=== PATIENT | female | born 1965 | race Caucasian/White ===

== ENCOUNTER → 2017-06-19 | Outpatient (CLI) | payer OTHER ==
[~2017-06-19] MED LIST: LEVSOD75 PO; LISI20 PO
[2017-06-19 14:18] LABS: Bun/Creatinine Ratio 15.9 (12.0-20.0); Calcium, Blood 8.6 mg/dL (8.5-10.1); Creatinine, Blood 1.07 mg/dL (0.40-1.00); Potassium, Blood 3.8 mmol/L (3.5-5.5)
[2017-06-19 14:22] LABS: Thyroid Stimulating Hormone 1.41 uIU/mL (0.360-4.800)
== END | disposition home or self-care (01) ==
LOC: LAB SHORT 13:51 → LAB 13:51
PROVIDERS: Hospitalist
DX: E03.9 Hypothyroidism, unspecified (principal); I10 Essential (primary) hypertension
CPT/HCPCS: 80048; 84439; 84443

== ENCOUNTER → 2017-06-19 | Outpatient (CLI) | payer OTHER | END | disposition home or self-care (01) | LOC: LAB 13:55 → LAB SHORT 13:55 | DX: Q61.3 Polycystic kidney, unspecified (principal) | CPT/HCPCS: 82043 ==

== ENCOUNTER → 2017-06-20 | Outpatient (CLI) | payer OTHER | END | disposition home or self-care (01) | LOC: LAB 12:48 → LAB SHORT 12:48 | DX: R73.9 Hyperglycemia, unspecified (principal) | CPT/HCPCS: 83036 ==

== ENCOUNTER → 2017-11-11 | Outpatient (CLI) | payer OTHER ==
[2017-11-11 18:16] LABS: Bun/Creatinine Ratio 17.6 (12.0-20.0); Creatinine, Blood 1.42 mg/dL (0.40-1.00); Potassium, Blood 4.1 mmol/L (3.5-5.5)
== END | disposition home or self-care (01) ==
LOC: LAB SHORT 17:43 → LAB 17:43
PROVIDERS: Hospitalist
DX: I10 Essential (primary) hypertension (principal)
CPT/HCPCS: 80048

== ENCOUNTER → 2018-03-30 | Outpatient (CLI) | payer OTHER ==
[2018-03-30 18:14] LABS: Bun/Creatinine Ratio 19.1 (12.0-20.0); Calcium, Blood 8.4 mg/dL (8.5-10.1); Creatinine, Blood 1.15 mg/dL (0.40-1.00); Free Thyroxine 1.18 ng/dL (0.70-1.60); Potassium, Blood 3.7 mmol/L (3.5-5.5)
[2018-03-30 18:19] LABS: Thyroid Stimulating Hormone 0.52 uIU/mL (0.360-4.800)
== END | disposition home or self-care (01) ==
LOC: LAB SHORT 17:35 → LAB 17:35
PROVIDERS: Hospitalist
DX: E03.9 Hypothyroidism, unspecified (principal); I10 Essential (primary) hypertension
CPT/HCPCS: 80048; 84439; 84443

== ENCOUNTER 2018-07-19 23:02 | Emergency (ER) | payer OTHER ==
[~2018-07-19] VITALS: Ht 154.9 cm; Wt 91.2 kg
[2018-07-19] MEDS ORDERED: NEBI10 (23:09)
[2018-07-19 23:37] LABS: BASOPHILS ABSOLUTE AUTO 0.02 K/mm3 (0.00-0.23); BASOPHILS PERCENT AUTO 0 % (0-2); EOSINOPHILS ABSOLUTE AUTO 0.11 K/mm3 (0.00-0.68); EOSINOPHILS PERCENT AUTO 2 % (0-6); Hematocrit 42.9 % (33.0-51.0); Hemoglobin 14.4 g/dL (11.5-16.0); IMMATURE GRAN ABSOLUTE AUTO 0.01 K/mm3 (0.00-0.10); IMMATURE GRAN PERCENT AUTO 0 % (0-1); LYMPHOCYTES ABSOLUTE AUTO 1.38 K/mm3 (0.84-5.20); LYMPHOCYTES PERCENT AUTO 19 % (21-46); MONOCYTES ABSOLUTE AUTO 0.32 K/mm3 (0.16-1.47); MONOCYTES PERCENT AUTO 5 % (4-13); Mean Corpuscular HGB 27.3 pg (26.0-34.0); Mean Corpuscular HGB Conc 33.6 g/dL (31.5-36.5); Mean Corpuscular Volume 81 fL (80-100); NEUTROPHILS ABSOLUTE AUTO 5.34 K/mm3 (1.96-9.15); NEUTROPHILS PERCENT AUTO 74 % (41-73); Platelet Count 360 K/mm3 (150-400); RDW Coefficient Variation 13.1 % (11.7-14.2); RDW Standard Deviation 38.2 fL (35.1-46.3); Red Blood Cell Count 5.28 M/mm3 (3.80-5.20); White Blood Cell Count 7.18 K/mm3 (4.00-11.30)
[2018-07-20 00:01] LABS: Alanine Aminotransfer (ALT/SGP 20 U/L (12-78); Albumin/Globulin Ratio 0.9 (0.8-1.8); Alk Phos 81 U/L (50-136); Anion Gap 8 mmol/L (6-16); Aspartate Aminotrans (AST/SGOT 12 U/L (12-37); Bilirubin, Total 0.6 mg/dL (0.1-1.0); Blood Urea Nitrogen 16 mg/dL (8-24); Bun/Creatinine Ratio 15.5 (12.0-20.0); CO2, Blood 25 mmol/L (21-32); Calcium, Blood 9.8 mg/dL (8.5-10.1); Chloride, Blood 109 mmol/L (98-108); Creatinine, Blood 1.03 mg/dL (0.40-1.00); Globulin, Blood 4.6 g/dL (2.2-4.0); Glomerular Filtration Rate >60 (60-); Glucose, Blood 104 mg/dL (70-99); Potassium, Blood 3.9 mmol/L (3.5-5.5); Sodium, Blood 142 mmol/L (136-145); Total Protein, Blood 8.6 g/dL (6.4-8.2)
[2018-07-20] MEDS ORDERED: MECL12.5 PO (03:54)
[2018-07-20] MEDS ORDERED: Valium5 MG PO (03:54)
== END 2018-07-20 04:06 | disposition home or self-care (01) ==
LOC: ER 23:02
PROVIDERS: Emergency Medicine
DX: H81.10 Benign paroxysmal vertigo, unspecified ear (principal); R11.0 Nausea; Z88.2 Allergy status to sulfonamides; Z79.899 Other long term (current) drug therapy; I10 Essential (primary) hypertension; E03.9 Hypothyroidism, unspecified
CPT/HCPCS: 36415; 80053; 82947; 85025; 96374; 99284-25; A9270-GY; J2405

== ENCOUNTER → 2019-06-03 | Outpatient (CLI) | payer OTHER ==
[~2019-06-03] MED LIST changes: +MECL12.5 PO; +NEBI10; +Valium5 MG PO
== END | disposition home or self-care (01) ==
LOC: LAB 14:22 → LAB SHORT 14:22
DX: N39.0 Urinary tract infection, site not specified (principal)
CPT/HCPCS: 87086

== ENCOUNTER 2020-11-24 08:46 | Day surgery (SDC) | payer OTHER ==
[~2020-11-24] VITALS: Ht 154.9 cm; Wt 96.6 kg
[~2020-11-24 08:46] MED LIST changes: +Aldactone25 MG PO; +HYDRA25 PO; -LISI20 PO; -NEBI10; +NEBI10 PO; +VALACYCLOVIR1000 M1 PO; +ZESTRIL40 MG PO; +[UNRECOGNIZED DRUG - OTHER] PO; +[UNRECOGNIZED DRUG - OTHER] PO
--- NOTE | 2020-11-24 09:33 | NUR ---
11/24/20 0933 Marcela Gannon FIRST ATTEMPT MISSED BY KEISHA IN THE RIGHT HAND. SECOND ATTEMPT SUCCESFUL BY RN IN THE LEFT HAND.
== END 2020-11-24 11:05 | disposition home or self-care (01) ==
LOC: ORSCSDS 08:46
PROVIDERS: Internal Medicine Gastroenterology
PROC: 0DBL8ZX Excision of Transverse Colon, Via Natural or Artificial Opening Endoscopic, Diagnostic (ICD-10-PCS; principal; 2020-11-24 10:00)
DX: Z12.11 Encounter for screening for malignant neoplasm of colon (principal); Z86.010 Personal history of colon polyps; D12.3 Benign neoplasm of transverse colon; K64.8 Other hemorrhoids; I10 Essential (primary) hypertension; E03.9 Hypothyroidism, unspecified; E66.01 Morbid (severe) obesity due to excess calories; Z68.41 Body mass index [BMI] 40.0-44.9, adult; Z79.899 Other long term (current) drug therapy
CPT/HCPCS: 88305; A9270; J2405; J2704; J7120

== ENCOUNTER → 2021-12-31 | Outpatient (CLI) | payer OTHER | LOC: LAB SHORT 09:00 → LAB 09:00 | DX: N30.01 Acute cystitis with hematuria (principal) | CPT/HCPCS: 87077; 87086; 87186 ==

== ENCOUNTER → 2022-05-29 | Outpatient (CLI) | payer OTHER | LOC: LAB 15:35 → LAB SHORT 15:35 | PROVIDERS: Hospitalist | DX: E27.40 Unspecified adrenocortical insufficiency (principal) | CPT/HCPCS: 82626 ==

== ENCOUNTER → 2023-07-28 | Outpatient (CLI) | payer OTHER ==
[2023-08-08 13:46] LABS: HPV GENOTYPE 16 BY PCR Negative; HPV GENOTYPE 18 BY PCR Negative; HPV SOURCE Cervical; HPV, OTHER HIGH RISK BY PCR Negative
== END ==
LOC: LAB SHORT 13:41 → LAB 13:41
PROVIDERS: Hospitalist
DX: Z12.4 Encounter for screening for malignant neoplasm of cervix (principal)
CPT/HCPCS: 87624; 88142

== ENCOUNTER 2023-08-25 16:05 | Inpatient (IN) | payer OTHER ==
[~2023-08-25] VITALS: Ht 154.9 cm; Wt 94.8 kg
[2023-08-25] MEDS ORDERED: NS 1,000 ML IV SCH ×3 (16:30→21:10)
[2023-08-25] MEDS ORDERED: Ondansetron HCl 2 MG / ML 2ML Vial IV PRN (21:10)
[2023-08-25] MEDS ORDERED: Loperamide HCl 2 MG Cap PO PRN (21:10)
[2023-08-25 22:22] LABS: BASOPHILS ABSOLUTE AUTO 0.03 K/mm3 (0.00-0.23); BASOPHILS PERCENT AUTO 0 % (0-2); EOSINOPHILS ABSOLUTE AUTO 0.56 K/mm3 (0.00-0.68); EOSINOPHILS PERCENT AUTO 8 % (0-6); Hematocrit 34.8 % (33.0-51.0); Hemoglobin 11.9 g/dL (11.5-16.0); IMMATURE GRAN ABSOLUTE AUTO 0.01 K/mm3 (0.00-0.10); IMMATURE GRAN PERCENT AUTO 0 % (0-1); LYMPHOCYTES ABSOLUTE AUTO 1.66 K/mm3 (0.84-5.20); LYMPHOCYTES PERCENT AUTO 24 % (21-46); MONOCYTES ABSOLUTE AUTO 0.58 K/mm3 (0.16-1.47); MONOCYTES PERCENT AUTO 9 % (4-13); Mean Corpuscular HGB 28.2 pg (26.0-34.0); Mean Corpuscular HGB Conc 34.2 g/dL (31.5-36.5); Mean Corpuscular Volume 83 fL (80-100); Mean Platelet Volume 9.6 fL (9.1-12.4); NEUTROPHILS ABSOLUTE AUTO 4.02 K/mm3 (1.96-9.15); NEUTROPHILS PERCENT AUTO 59 % (41-73); Platelet Count 284 K/mm3 (150-400); RDW Standard Deviation 39.1 fL (35.1-46.3); Red Blood Cell Count 4.22 M/mm3 (3.80-5.20); White Blood Cell Count 6.86 K/mm3 (4.00-11.30)
[2023-08-25 22:39] LABS: International Normalized Ratio 1.07; Prothrombin Time Results 11.4 Sec (9.7-11.5)
[2023-08-25] MEDS ORDERED: SPIR25 PO (22:41)
[2023-08-25 22:52] LABS: Albumin, Blood 3.4 g/dL (3.4-5.0); Albumin/Globulin Ratio 0.9 (0.8-1.8); Bilirubin, Total 0.3 mg/dL (0.1-1.0); Bun/Creatinine Ratio 10.2 (12.0-20.0); Calcium, Blood 8.4 mg/dL (8.5-10.1); Globulin, Blood 3.9 g/dL (2.2-4.0); Total Protein, Blood 7.3 g/dL (6.4-8.2)
[2023-08-25 23:00] VITALS: BP 102/62
--- NOTE | 2023-08-25 23:31 | NUR ---
PT IS ALERT AND ORIENTED X 4, COOPERATIVE WITH CARE AND ABLE TO MAKE NEEDS KNOWN. SHE SAID SHE FEELS VERY WEAK AND HER HEAD FEELS HEAVY. SHE EXPERIENCES INTERMITTENT DIZZINESS. SHE IS ON RA AND MAINTAINING 02 SATURATION ABOVE 92% AND SHE DENIES SOB. HR SR 70'S, SHE DENIES CHEST PAIN/PRESSURE, BP STABLE. PT IS CONTINENT OF BLADDER AND BOWELS. PT SAID SHE HAS BEEN EXPERIENCING DIARRHEA AND INTERMITTENT NAUSEA SINCE SHE STARTED [facility]EMPIC IN [place]. SHE HAS BEEN EXPERIENCING NAUSEA, VOMITING, WEAKNESS, AND FEELING THAT HEAD IS HEAVY SINCE LAST FRIDAY WHEN SHE WAS IN [place] VISITING HER PARENTS. SHE SAID THAT SHE THINKS SHE OVER WORKED HERSELF WHILE HELPING HER DAD CLEAR OUT HIS GARAGE IN THE HEAT. SHE SAID SHE DOESN'T THINK SHE DRANK ENOUGH WATER. PT SAID SHE TOOK HERSELF OFF OF OZEMPIC AND HER LAST DOSE OF 0.5MG WAS August. PT SAID SHE GOT BACK FROM [place] YESTERDAY 08/24/2023. IV TO R WRIST IS PATENT AND INFUSING PER EMAR. PT WAS NAUSEOUS WHEN SHE FIRST ARRIVED TO UNIT AND SHE WAS MEDICATED PER EMAR. PT'S AT BEDSIDE WHEN SHE FIRST ARRIVED, HE SAID HE IS GOING TO GO HOME AND GET SOME REST. PT SAID SHE IS EXHAUSTED. SHE IS RESTING IN BED AND CALL LIGHT WITHIN REACH.
[2023-08-26 03:30] VITALS: BP 94/54
[2023-08-26 05:21] LABS: BASOPHILS ABSOLUTE AUTO 0.03 K/mm3 (0.00-0.23); BASOPHILS PERCENT AUTO 0 % (0-2); EOSINOPHILS ABSOLUTE AUTO 0.59 K/mm3 (0.00-0.68); EOSINOPHILS PERCENT AUTO 8 % (0-6); Hematocrit 33.7 % (33.0-51.0); Hemoglobin 11.3 g/dL (11.5-16.0); IMMATURE GRAN ABSOLUTE AUTO 0.02 K/mm3 (0.00-0.10); IMMATURE GRAN PERCENT AUTO 0 % (0-1); LYMPHOCYTES ABSOLUTE AUTO 1.67 K/mm3 (0.84-5.20); LYMPHOCYTES PERCENT AUTO 23 % (21-46); MONOCYTES ABSOLUTE AUTO 0.49 K/mm3 (0.16-1.47); MONOCYTES PERCENT AUTO 7 % (4-13); Mean Corpuscular HGB Conc 33.5 g/dL (31.5-36.5); Mean Corpuscular Volume 83 fL (80-100); Mean Platelet Volume 9.7 fL (9.1-12.4); NEUTROPHILS PERCENT AUTO 62 % (41-73); Platelet Count 262 K/mm3 (150-400); RDW Coefficient Variation 12.8 % (11.7-14.2); RDW Standard Deviation 39.2 fL (35.1-46.3); Red Blood Cell Count 4.04 M/mm3 (3.80-5.20)
[2023-08-26] MEDS ORDERED: Levothyroxine Sodium 0.05 MG Tab PO SCH (06:00)
[2023-08-26 06:10] LABS: Free Thyroxine 0.91 ng/dL (0.70-1.60); Thyroid Stimulating Hormone 0.519 uIU/mL (0.360-4.800)
[2023-08-26 06:14] LABS: Albumin, Blood 3.3 g/dL (3.4-5.0); Albumin/Globulin Ratio 0.9 (0.8-1.8); Bilirubin, Total 0.3 mg/dL (0.1-1.0); Calcium, Blood 7.9 mg/dL (8.5-10.1); Globulin, Blood 3.6 g/dL (2.2-4.0); Potassium, Blood 4.4 mmol/L (3.5-5.5); Total Protein, Blood 6.9 g/dL (6.4-8.2)
[2023-08-26 06:17] LABS: Creatinine, Blood 10.3 mg/dL (0.40-1.00)
[2023-08-26] MEDS ORDERED: Insulin Human Lispro 100 Units/ML 3ML Syringe SC SCH (07:30)
[2023-08-26 07:35] VITALS: BP 95/56
[2023-08-26] MEDS ORDERED: NS 1,000 ML IV ONE ×2 (09:05→21:00)
[2023-08-26] MEDS ORDERED: NS 1,000 ML IV SCH ×2 (10:15→20:40)
[2023-08-26 11:19] VITALS: BP 96/50
[2023-08-26 11:53] VITALS: BP 89/58
[2023-08-26 12:42] LABS: Source, Urine Clean Catch
[2023-08-26 13:09] LABS: Appearance, Urine Clear (Clear); Bilirubin, Urine Neg (Neg); Blood, Urine Neg (Neg); Glucose Qualitative, Urine Neg (Neg); Ketones, Urine Neg (Neg); Leukocyte Esterase, Urine Neg (Neg); Nitrite, Urine Neg (Neg); Protein, Urine 1+ (Neg); Specific Gravity, Urine 1.015 (1.003-1.022); Urobilinogen, Urine NORM (Normal)
[2023-08-26 13:32] LABS: Color, Urine Pale Yellow (P-Yellow)
[2023-08-26 15:06] VITALS: BP 98/51
--- NOTE | 2023-08-26 17:01 | NUR ---
SHIFT SUMMARY A&Ox4, CALLS AND COMMUNICATES NEEDS APPROPRIATELY. BP SOFT WITH SBP 90'S, ASYPMTOMATIC, SINUS 60'S, DENIES CP/PRESSURE. SpO2> 92% RA, DENIES SOB. SBA/IND IN ROOM. CONTINENT OF URINE, NO BM THIS SHIFT. C/O MILD HEADACHE. NO N/V/D. NO OTHER EVENTS, WILL REPORT TO ONCOMING RN.
[2023-08-26] MEDS ORDERED: Acetaminophen 500 MG Tab PO PRN (17:10)
[2023-08-26 19:26] VITALS: BP 87/54
[2023-08-26] MEDS ORDERED: NS 250 ML IV SCH (21:35)
--- NOTE | 2023-08-26 22:52 | NUR ---
PT IS ALERT AND ORIENTED X 4, COOPERATIVE WITH CARE AND ABLE TO MAKE NEEDS KNOWN. PT MORE STEADY ON FEET TONIGHT WHEN AMBULATING TO RESTROOM THAN SHE WAS LAST NIGHT. PT REPORTS DECREASE IN DIZZINESS WITH POSITION CHANGES AND AMBULATION. SBA WHEN AMBULATING. SHE IS ON RA AND MAINTAINING 02 SATURATION ABOVE 92% AND SHE DENIES SOB. HR SR/ST 80'S-100'S. SHE DENIES CHEST PAIN/PRESSURE. BP STABLE. MD CEDRIC WAS IN TO SPEAK WITH PT THIS SHIFT. NEW ORDERS PLACED AND FLUIDS RUNNING PER ORDERS. URINE SAMPLE SENT TO LAB PER ORDERS. PT HAD A COUPLE FAMILY MEMBERS VISIT HER THIS EVENING. PT RESTING IN BED WATCHING TV AND CALL LIGHT WITHIN REACH.
[2023-08-27 00:42] VITALS: BP 104/61
[2023-08-27 04:09] LABS: BASOPHILS ABSOLUTE AUTO 0.01 K/mm3 (0.00-0.23); BASOPHILS PERCENT AUTO 0 % (0-2); EOSINOPHILS ABSOLUTE AUTO 0.38 K/mm3 (0.00-0.68); EOSINOPHILS PERCENT AUTO 10 % (0-6); Hematocrit 31.6 % (33.0-51.0); Hemoglobin 10.3 g/dL (11.5-16.0); IMMATURE GRAN PERCENT AUTO 0 % (0-1); LYMPHOCYTES ABSOLUTE AUTO 1.18 K/mm3 (0.84-5.20); LYMPHOCYTES PERCENT AUTO 29 % (21-46); MONOCYTES ABSOLUTE AUTO 0.34 K/mm3 (0.16-1.47); MONOCYTES PERCENT AUTO 9 % (4-13); Mean Corpuscular HGB 27.3 pg (26.0-34.0); Mean Corpuscular HGB Conc 32.6 g/dL (31.5-36.5); Mean Corpuscular Volume 84 fL (80-100); Mean Platelet Volume 9.4 fL (9.1-12.4); NEUTROPHILS ABSOLUTE AUTO 2.11 K/mm3 (1.96-9.15); NEUTROPHILS PERCENT AUTO 52 % (41-73); Platelet Count 211 K/mm3 (150-400); RDW Coefficient Variation 12.6 % (11.7-14.2); RDW Standard Deviation 38.4 fL (35.1-46.3); Red Blood Cell Count 3.77 M/mm3 (3.80-5.20); White Blood Cell Count 4.02 K/mm3 (4.00-11.30)
[2023-08-27 04:25] LABS: Anion Gap 12 mmol/L (3-11); Blood Urea Nitrogen 91 mg/dL (8-24); Bun/Creatinine Ratio 15.9 (12.0-20.0); CO2, Blood 20 mmol/L (21-32); Calcium, Blood 7.4 mg/dL (8.5-10.1); Chloride, Blood 118 mmol/L (98-108); Creatinine, Blood 5.74 mg/dL (0.40-1.00); Glomerular Filtration Rate 8 (60-); Glucose, Blood 99 mg/dL (70-99); Iron Serum 35 ug/dL (50-170); Percent Saturation 13.9 % (15.0-50.0); Phosphorus, Blood 4.2 mg/dL (2.5-4.9); Potassium, Blood 4.4 mmol/L (3.5-5.5); Sodium, Blood 146 mmol/L (136-145); Total Iron Binding Capacity 252 ug/dL (250-450)
--- NOTE | 2023-08-27 05:34 | NUR ---
NO ACUTE CHANGES, SEE PREVIOUS NOTE.
[2023-08-27 06:17] VITALS: BP 109/57
[2023-08-27 08:48] VITALS: BP 101/56
--- NOTE | 2023-08-27 09:19 | NUR ---
ASSUMED CARE OF PT AT 0700 THIS AM. PT HAS NO COMPLAINTS, ABLE TO AMULATE IN ROOM W . IVF RUNNER PER MD ORDERS. PT SHOWERED THIS AM AND STATES SHE HAS NO FURTHER NEEDS, AWAITING MD ROUNDS. DR MENDOZA ROUNDED, STATUS CHANGED TO MEDICAL NO TELE. WILL CONTINUE TO MONITOR. PT IS ABLE TO USE CALL LIGHT AND CALL LIGHT IS IN REACH.
[2023-08-27] MEDS ORDERED: Sodium Chloride 0.45% 1,000 ML IV SCH (10:40)
[2023-08-27 17:08] VITALS: BP 120/70
--- NOTE | 2023-08-27 18:18 | NUR ---
NO CHANGES SINCE LAST NOTE. IVF CONTINUES PER MD ORDER. PT HAS NO COMPLAINTS AT THIS TIME. PT IS ABLE TO USE CALL LIGHT AND MAKE NEEDS KNOWN. WILL CONTINUE TO MONITOR AND GIVE REPORT TO NOC SHIFT RN.
[2023-08-27 19:46] VITALS: BP 117/71
[2023-08-28 03:39] VITALS: BP 123/74
--- NOTE | 2023-08-28 03:40 | NUR ---
SHIFT SUMMARY/TRANSFER NOTE THIS RN ASSUMED CARE OF PATIENT AT 1900. PT A&O X4. ABLE TO MAKE NEEDS KNOWN. VSS. IND WITH ADL'S. PT WITH MILD EDEMA IN FEET/HANDS. VOIDING WELL. 1/2 NS INFUSING PER EMAR. PT WITH NAUSEA X1 THIS SHIFT, WAS ABLE TO EAT CRACKER AND REPORTED NAUSEA IMPROVED AND DECLINED NEEDING ZOFRAN. PT TO BE TRANSFERRED TO 342. REPORT GIVEN VIA PHONE TO VICTOR HUGO RODRIGUEZ. PT TRANSFERRING VIA WHEELCHAIR. NO S/S OF DISTRESS UPON LEAVING.
[2023-08-28 03:51] VITALS: BP 118/78
[2023-08-28 04:30] LABS: Albumin, Blood 2.9 g/dL (3.4-5.0); Anion Gap 9 mmol/L (3-11); Blood Urea Nitrogen 68 mg/dL (8-24); Bun/Creatinine Ratio 19.1 (12.0-20.0); CO2, Blood 21 mmol/L (21-32); Calcium, Blood 7.7 mg/dL (8.5-10.1); Chloride, Blood 119 mmol/L (98-108); Creatinine, Blood 3.56 mg/dL (0.40-1.00); Glomerular Filtration Rate 14 (60-); Glucose, Blood 95 mg/dL (70-99); Phosphorus, Blood 4.4 mg/dL (2.5-4.9); Potassium, Blood 4.3 mmol/L (3.5-5.5); Sodium, Blood 145 mmol/L (136-145)
--- NOTE | 2023-08-28 05:08 | NUR ---
Patient arrived to room from PCU around 0350. Patient alert and oriented, VSS, resting comfortably and ambulating in room independently on room air. 1/2 NS at 125 mL/hr started to right wrist PIV, tolerating well. Measuring hat in bathroom toilet, patient verbally contracted to notify staff when urine needs to be measured rather than measuring and dumping on her own.
[2023-08-28 07:58] VITALS: BP 116/76
[2023-08-28] MEDS ORDERED: Sod Ferric Gluc Complx/Sucrose 125 MG in NS 100 ML IV SCH (09:00)
[2023-08-28 15:56] VITALS: BP 124/78
--- NOTE | 2023-08-28 16:14 | NUR ---
NO ACUTE CHANGES THIS SHIFT. PT CONTINUES TO REPORT NAUSEA WITH HEADACHE. TREATED PER EMAR. INDEPENDENT IN THE ROOM, ABLE TO MAKE NEEDS KNOWN. PT CBG HAVE BEEN WNL AND NO TREATEMENT INDICATED. ALERT AND ORIENTED WITH CALL LIGHT IN REACH.
[2023-08-28] MEDS ORDERED: Sodium Chloride 0.45% 1,000 ML IV SCH (16:35)
[2023-08-28 18:06] LABS: Albumin, Blood 2.9 g/dL (3.4-5.0); Anion Gap 10 mmol/L (3-11); Blood Urea Nitrogen 61 mg/dL (8-24); Bun/Creatinine Ratio 20.7 (12.0-20.0); CO2, Blood 21 mmol/L (21-32); Calcium, Blood 7.5 mg/dL (8.5-10.1); Chloride, Blood 115 mmol/L (98-108); Creatinine, Blood 2.94 mg/dL (0.40-1.00); Glomerular Filtration Rate 18 (60-); Glucose, Blood 117 mg/dL (70-99); Phosphorus, Blood 3.5 mg/dL (2.5-4.9); Potassium, Blood 4.2 mmol/L (3.5-5.5); Sodium, Blood 142 mmol/L (136-145)
[2023-08-28 20:05] VITALS: BP 121/71
[2023-08-29 04:30] VITALS: BP 136/59
[2023-08-29 05:39] LABS: Albumin, Blood 2.9 g/dL (3.4-5.0); Anion Gap 12 mmol/L (3-11); Blood Urea Nitrogen 52 mg/dL (8-24); Bun/Creatinine Ratio 16.8 (12.0-20.0); CO2, Blood 20 mmol/L (21-32); Calcium, Blood 7.7 mg/dL (8.5-10.1); Chloride, Blood 117 mmol/L (98-108); Creatinine, Blood 3.09 mg/dL (0.40-1.00); Glomerular Filtration Rate 17 (60-); Glucose, Blood 100 mg/dL (70-99); Phosphorus, Blood 3.4 mg/dL (2.5-4.9); Potassium, Blood 4.2 mmol/L (3.5-5.5); Sodium, Blood 145 mmol/L (136-145)
--- NOTE | 2023-08-29 07:14 | NUR ---
NOC SHIFT SUMMARY LABS IMPROVING. PT APPEARED TO HAVE A GOOD SLEEP. STILL ON IVF. SHE IS HOPING TO DISCHARGE TODAY. NO NAUSEA OR ANY OTHER ISSUES OVERNIGHT.
[2023-08-29 07:24] VITALS: BP 125/73
[2023-08-29] MEDS ORDERED: ACET500 PO (13:56)
[2023-08-29] MEDS ORDERED: LOPE2C PO (13:56)
== END 2023-08-29 14:14 | disposition home or self-care (01) | DRG 683 ==
LOC: ER 16:05 → PCU 21:05 → MEDS 08-28 03:50
PROVIDERS: Hospitalist; ADMIT Internal Medicine
DX: N17.0 Acute kidney failure with tubular necrosis (principal); K52.1 Toxic gastroenteritis and colitis; Q61.3 Polycystic kidney, unspecified; E86.0 Dehydration; D50.9 Iron deficiency anemia, unspecified; N18.31 Chronic kidney disease, stage 3a; E11.22 Type 2 diabetes mellitus with diabetic chronic kidney disease; I12.9 Hypertensive chronic kidney disease with stage 1 through stage 4 chronic kidney disease, or unspecified chronic kidney disease; E03.9 Hypothyroidism, unspecified; I95.9 Hypotension, unspecified; T50.995A Adverse effect of other drugs, medicaments and biological substances, initial encounter; Z88.2 Allergy status to sulfonamides; Z79.899 Other long term (current) drug therapy; Z79.890 Hormone replacement therapy
CPT/HCPCS: 36415; 76770; 80053; 80069; 82947; 83540; 83550; 83690; 83880; 84145; 84439; 84443; 84560; 85025; 85610; 96360; 99284-25; A9270; J2405; J2916; J7030

== ENCOUNTER 2024-09-17 10:51 | Day surgery (SDC) | payer OTHER ==
[~2024-09-17] VITALS: Ht 154.9 cm; Wt 98.6 kg
[~2024-09-17 10:51] MED LIST changes: +ACET500 PO; +Bupivacaine 0.5% W/EPI 1:200000 SDV 30 ML Vial ONE; +LOPE2C PO; +SPIR25 PO
[2024-09-17] MEDS ORDERED: SKYRIZI150 MG/1 M SC (11:17)
[2024-09-17] MEDS ORDERED: LISI20 (11:17)
[2024-09-17] MEDS ORDERED: VITAMIN D5000 UNIT PO (11:19)
[2024-09-17] MEDS ORDERED: Dexamethasone Sod Phos 10 MG/ML 1ML VIAL ONE (11:30)
[2024-09-17] MEDS ORDERED: Bupivacaine 0.5% HCl 5 MG/ML 30MLVIAL ONE (11:30)
[2024-09-17] MEDS ORDERED: Rocuronium Bromide 10 MG/ML 5ML Injection IV ONE (11:30)
[2024-09-17] MEDS ORDERED: Midazolam HCl 1MG / ML 2ML Vial ONE (11:30)
[2024-09-17] MEDS ORDERED: FentaNYL Citrate 50 MCG/ML 2 ML Injection ONE ×2 (11:30→13:14)
[2024-09-17] MEDS ORDERED: Ondansetron HCl 2 MG / ML 2ML Vial ONE (11:30)
[2024-09-17] MEDS ORDERED: CeFAZolin Sodium 2,000 MG VIAL ONE (11:46)
--- NOTE | 2024-09-17 12:15 | NUR ---
09/17/24 1215 Liam Pruitt TIME OUT AT 1202. DR VIDES PERFORMS NERVE BLOCK. PT TOLERATED WELL
[2024-09-17] MEDS ORDERED: Sugammadex Sodium 200 MG/2ML SDV (100 MG/ML) ONE (12:37)
--- NOTE | 2024-09-17 13:15 | NUR ---
09/17/24 [address] ELEVATION OBSERVED ON THREE LEAD ECG. PT DENIED CP, SOB, NAUSEA, AND OTHER SYMPTOMS. DR. VIDES NOTIFIED AND ORDERED 12 LEAD ECG. AFTER REVIEWING ECG, HE APPROVED PROCEDING WITH NORMAL RECOVERY PROTOCOL.
[2024-09-17 13:35] VITALS: BP 126/79
[2024-09-17] MEDS ORDERED: HYDROcodone 5-APAP 325 TAB ONE (13:49)
--- NOTE | 2024-09-17 14:27 | NUR ---
09/17/24 1427 Cody Santoyo PT REPORTED 5/10 PAIN AT TIME OF D/C. FLACC 2-04/19. SHE DESCRIBED PAIN TOLERABLE AND APPEARED ALERT AND RELAXED. DR. VIDES CONSULTED REGARDING HEART RHYTHM AND VITALS. HE APPROVED D/C.
== END 2024-09-17 14:27 | disposition home or self-care (01) ==
LOC: ORSCSDS 10:51
PROVIDERS: Podiatrist Foot & Ankle Surgery
PROC: 0QSP04Z Reposition Left Metatarsal with Internal Fixation Device, Open Approach (ICD-10-PCS; principal; 2024-09-17 13:00)
DX: S92.355A Nondisplaced fracture of fifth metatarsal bone, left foot, initial encounter for closed fracture (principal); E11.9 Type 2 diabetes mellitus without complications; I10 Essential (primary) hypertension; N18.9 Chronic kidney disease, unspecified; E03.9 Hypothyroidism, unspecified; E66.01 Morbid (severe) obesity due to excess calories; Z68.41 Body mass index [BMI] 40.0-44.9, adult; Z79.899 Other long term (current) drug therapy
CPT/HCPCS: 82947; 93005; 93010; A6253; A9270; C1713; J0690; J1100; J2250; J2405; J2704; J3010; J7120

== ENCOUNTER → 2024-11-02 | Outpatient (CLI) | payer OTHER ==
[~2024-11-02] MED LIST changes: -Bupivacaine 0.5% W/EPI 1:200000 SDV 30 ML Vial ONE; +LISI20; +SKYRIZI150 MG/1 M SC; +VITAMIN D5000 UNIT PO
[2024-11-03 01:13] LABS: Thyroid Stimulating Hormone 1.02 uIU/mL (0.360-4.800)
== END ==
LOC: LAB 18:39 → LAB SHORT 18:39
PROVIDERS: Hospitalist
DX: E03.9 Hypothyroidism, unspecified (principal)
CPT/HCPCS: 84439; 84443

== ENCOUNTER → 2025-01-20 | Outpatient (CLI) | payer OTHER ==
[2025-01-20 14:41] LABS: Anion Gap 10.0 mmol/L (3-11); Blood Urea Nitrogen 54.0 mg/dL (8-24); CO2, Blood 22.0 mmol/L (21-32); Calcium, Blood 9.7 mg/dL (8.5-10.1); Chloride, Blood 109.0 mmol/L (98-108); Creatinine, Blood 1.93 mg/dL (0.40-1.00); Glucose, Blood 189.0 mg/dL (70-99); Potassium, Blood 4.2 mmol/L (3.5-5.5); Sodium, Blood 137.0 mmol/L (136-145)
== END ==
LOC: LAB 13:25 → LAB SHORT 13:25
PROVIDERS: Hospitalist
DX: R30.0 Dysuria (principal); Q61.3 Polycystic kidney, unspecified
CPT/HCPCS: 80048; 87077; 87086; 87186